=== PATIENT | male | born 1970 | race Caucasian/White ===

== ENCOUNTER → 2019-04-23 | Outpatient (CLI) | payer BC | LOC: GMAL 10:47 | PROVIDERS: ATTEND Family Medicine | DX: M25.50 Pain in unspecified joint (principal); I10 Essential (primary) hypertension; E78.49 Other hyperlipidemia ==

== ENCOUNTER → 2019-11-01 | Outpatient (CLI) | payer BC | LOC: GMAL 13:24 | PROVIDERS: ATTEND Family Medicine | DX: D51.9 Vitamin B12 deficiency anemia, unspecified (principal); E29.8 Other testicular dysfunction; R53.83 Other fatigue; E55.9 Vitamin D deficiency, unspecified ==

== ENCOUNTER → 2020-02-28 | Outpatient (CLI) | payer BC | LOC: GMAL 10:26 | PROVIDERS: ATTEND Family Medicine | DX: E29.8 Other testicular dysfunction (principal) ==

== ENCOUNTER → 2020-05-05 | Outpatient (CLI) | payer BC | LOC: GMAHI 12:44 | PROVIDERS: ATTEND Nurse Practitioner Family | DX: E29.8 Other testicular dysfunction (principal) ==